=== PATIENT | male | born 1995 ===

== ENCOUNTER 2018-10-08 19:54 | Emergency (ER) | payer OTHER ==
[2018-10-08 20:21] VITALS: BP 128/78; PULSE 51; RESP 16; TEMP 98.4; O2SAT 100
[2018-10-08] MEDS ORDERED: Naproxen 500 MG TAB PO ONE ×2 (20:42→21:05)
[2018-10-08] MEDS ORDERED: Tdap Vaccine 0.5 ml Vial (10-64 yrs) IM ONE ×2 (20:42→21:05)
--- NOTE | 2018-10-08 21:59 | ED PDOC ---
Upper Extremity Pain/Injury Time Seen by Provider: 10/08/18 20:29 Chief Complaint (Nursing): Finger,Hand,&Wrist History Per: Patient Additional Complaint(s): Pt. states earlier today at work he accidentally struck his L hand with a hammer which in turn caused his hand to drop and struck it against sharp nails causing a laceration. Denies numbness, tingling, other injury. Past Medical History Reviewed: Historical Data, Nursing Documentation, Vital Signs Vital Signs: Last Vital Signs Temp 98.4 F 10/08/18 20:19 Pulse 51 L 10/08/18 20:19 Resp 16 10/08/18 20:19 BP 128/78 10/08/18 20:19 Pulse Ox 100 10/08/18 20:19 - Family History Family History: States: No Known Family Hx - Home Medications Home Medications: Ambulatory Orders Medication Instructions Recorded Cephalexin [cephalexin] 500 mg PO Q6 #28 cap 10/08/18 - Allergies Allergies/Adverse Reactions: Allergies Allergy/AdvReac Type Severity Reaction Status Date / Time No Known Allergies Allergy Verified 10/08/18 20:19 Review of Systems ROS Statement: Except As Marked, All Systems Reviewed And Found Negative Musculoskeletal: Positive for: Hand Pain Physical Exam - Physical Exam Appears: Positive for: Well, Non-toxic, No Acute Distress Skin: Positive for: Normal Color, Warm. Negative for: Rash Eye Exam: Positive for: Normal appearance Pulses-Radial (L): 2+ Pulses-Radial (R): 2+ Extremity: Positive for: Other (L thenar area with 2 linear very superficial lacerations which are non-gaping and without active bleeidng but with minimal surround swelling; FROM actively of L wrist and L thumb; cap refill < 2 seconds of L thumb; no snuffbox tenderness of L thumb) Neurologic/Psych: Positive for: Alert, Oriented (x3). 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 Wound irrigated and cleansed. Bacitracin ointment applied. DSD applied. Informed of x-ray results. Disposition - Clinical Impression Clinical Impression: Hand injury, Abrasion - Patient ED Disposition Is Patient to be Admitted: No - Disposition Referrals: [facility] [Outside] Disposition: Routine/Home Disposition Time: 21:30 Condition: STABLE Additional Instructions: TONJA MAHER, thank you for letting us take care of you today. Your provider was Kodi Wright MD and you were treated for WC: LT HAND INJURY. The emergency medical care you received today was directed at your acute symptoms. If you were prescribed any medication, please fill it and take as directed. It may take several days for your symptoms to resolve. Return to the Emergency Department if your symptoms worsen, do not improve, or if you have any other problems. Please contact your doctor or call one of the physicians/clinics you have been referred to that are listed on the Patient Visit Information form that is included in your discharge packet. Bring any paperwork you were given at discharge with you along with any medications you are taking to your follow up visit. Our treatment cannot replace ongoing medical care by a primary care provider outside of the emergency department. Thank you for allowing the [facility] team to be part of your care today. If you had an X-Ray or CT scan: A Radiologist will review the ED reading if any change in treatment is needed we will contact you. If you had a blood, urine, or wound culture: It will take several days for the results, if any change in treatment is needed we will contact you. If you had an STI test: It will take 48 hours for the results. Please call after 1 week if you have not heard back. Prescriptions: Cephalexin [cephalexin] 500 mg PO Q6 #28 cap Instructions: Wound Care (DC), Skin Abrasions (DC) Forms: [employer] (Bermudian), [facility] ED School/Work Excuse Print Language: DANISH
--- NOTE | 2018-10-09 10:41 | RAD ---
PROCEDURE: Left Hand Radiographs. HISTORY: trauma COMPARISON: None. FINDINGS: BONES: Normal. No fracture. JOINTS: Normal. No osteoarthritic changes. SOFT TISSUES: Normal. OTHER FINDINGS: None. IMPRESSION: Normal left hand radiographs.
== END 2018-10-08 22:20 | disposition home or self-care (01) ==
LOC: H.ER 19:54
DX: S69.92XA Unspecified injury of left wrist, hand and finger(s), initial encounter (principal); W45.0XXA Nail entering through skin, initial encounter; S60.312A Abrasion of left thumb, initial encounter; Z23 Encounter for immunization